=== PATIENT | male | born 1985 | race Caucasian/White ===

== ENCOUNTER 2020-08-01 17:37 | Emergency (ER) | payer OTHER ==
[~2020-08-01 17:37] MED LIST: BACTRIM DS TAB1 EACH PO; PERCOCET 7.5-31 EACH PO; ZYVOX600 MG PO
== END 2020-08-02 01:00 | disposition left against medical advice (07) ==
LOC: ER1 17:37
DX: R07.9 Chest pain, unspecified (principal); R10.9 Unspecified abdominal pain; Z53.21 Procedure and treatment not carried out due to patient leaving prior to being seen by health care provider
CPT/HCPCS: 93005